=== PATIENT | male | born 1975 | race Two or more races ===

== ENCOUNTER 2019-04-04 17:26 | Emergency (ER) | payer MEDICAID ==
[~2019-04-04] VITALS: Ht 165.1 cm; Wt 75.0 kg
[2019-04-05] MEDS ORDERED: MECLIZINE 25MG TABLET PO ONE (03:45)
[2019-04-05 04:46] LABS: CHLORIDE 105 mEq/L (98-107); HEMATOCRIT. 45.9 % (42.0-52.0); HEMOGLOBIN. 15.4 g/dL (14.0-18.0); MEAN CORPUSCULAR HEMOGLOBIN 27.9 pg (28.0-32.0); MEAN CORPUSCULAR VOLUME 83.1 fL (80.0-94.0); MEAN PLATELET VOLUME 7.7 fl (7.4-10.4); PLATELET 299 x1000/uL (130-400); RED BLOOD CELL COUNT 5.52 mill/uL (4.7-6.1); RED CELL DISTRIBUTION WIDTH 13.5 % (11.6-14.6)
[2019-04-05 06:01] VITALS: BP 135/84
[2019-04-05 06:59] LABS: PLATELET ESTIMATE NORMAL
== END 2019-04-05 06:03 | disposition home or self-care (01) ==
LOC: ER 17:26
DX: R42 Dizziness and giddiness (principal); R51 Headache
CPT/HCPCS: 36415; 70450; 80053; 84484; 85025; 93005; 99284; J8597